=== PATIENT | male | born 2000 | race African-American/Black ===

== ENCOUNTER 2023-05-25 22:09 | Emergency (ER) | payer OTHER ==
[2023-05-25] MEDS ORDERED: Lidocaine 2% 5 ML SDV INFILT ONE (22:10)
[2023-05-25] MEDS ORDERED: Bacitracin Oint 1 GM U/D Packet TOP ONE (23:47)
== END 2023-05-26 00:16 | disposition home or self-care (01) ==
LOC: FB.ED 22:09
DX: S01.81XA Laceration without foreign body of other part of head, initial encounter (principal); W26.8XXA Contact with other sharp object(s), not elsewhere classified, initial encounter; Y99.0 Civilian activity done for income or pay
CPT/HCPCS: 12013; 99283

== ENCOUNTER 2024-01-08 13:41 | Emergency (ER) | payer SELFPAY ==
[2024-01-08] MEDS ORDERED: Sodium Chloride 0.9% 10 ML Syringe FLUSH PRN (14:26)
[2024-01-08] MEDS: traMADol 50 MG Tab PO ONE (14:36)
[2024-01-08] MEDS: Ketorolac 30 MG/ML SDV IVPUSH ONE (14:37)
[2024-01-08] MEDS: cefTRIAXone 2 GM Vial IVPUSH ONE (14:42)
[2024-01-08 14:43] LABS: BASOPHILS ABSOLUTE AUTO 0.1 x10-3/uL (0.0-0.3); BASOPHILS PERCENT AUTO 0.5 % (0.3-3.8); EOSINOPHILS ABSOLUTE AUTO 0.1 x10-3/uL (0.0-0.6); EOSINOPHILS PERCENT AUTO 0.5 % (0.1-6.8); HEMATOCRIT 44.9 % (38.3-50.1); HEMOGLOBIN 15.1 g/dL (12.9-17.7); LYMPHOCYTES ABSOLUTE AUTO 1.7 x10-3/uL (0.5-4.5); LYMPHOCYTES PERCENT AUTO 14.8 % (15.8-45.3); MEAN CORPUSCULAR HEMOGLOBIN 30.9 pg (27.0-33.3); MEAN CORPUSCULAR HGB CONC 33.7 g/dL (28.7-35.3); MEAN CORPUSCULAR VOLUME 91.9 fL (80.8-98.7); MEAN PLATELET VOLUME 7.7 fL (6.7-11.0); MONOCYTES ABSOLUTE AUTO 1.3 x10-3/uL (0.0-1.2); MONOCYTES PERCENT AUTO 11.7 % (5.5-15.2); NEUTROPHILS ABSOLUTE AUTO 8.1 x10-3/uL (1.7-6.9); NEUTROPHILS PERCENT AUTO 72.5 % (40.3-71.8); PLATELET COUNT,PLT 233 x10(3)uL (117-477); RED BLOOD CELL COUNT 4.89 x10(6)uL (3.90-5.90); RED CELL DISTRIBUTION WIDTH 12.5 % (12.4-15.0); WHITE BLOOD CELL COUNT,WBC 11.2 x10-3/uL (3.2-10.1)
[2024-01-08 14:45] LABS: BLOOD UREA NITROGEN,BUN 8 mg/dL (7-18); BUN/CREATININE RATIO 8.9 (9-20); CALCIUM 9.1 mg/dL (8.6-10.2); CARBON DIOXIDE,CO2 28 mmol/L (21-32); CHLORIDE,CL 100 mmol/L (100-110); CREATININE 0.9 mg/dL (0.70-1.30); EST CRCL DRUG DOSING (CG) 143.03 mL/min; ESTIMATED GFR 122 mL/min (>60); GLUCOSE RANDOM 93 mg/dL (80-116); POTASSIUM,K 3.5 mmol/L (3.5-5.3); SODIUM,NA 136 mmol/L (135-145)
[2024-01-08] MEDS: Clindamycin Phosphate 600 MG in Dextrose 5% in Water 50 ML IV ONE (15:10)
[2024-01-08] MEDS: Clindamycin in 0.9 % Sod Chlor 600 MG in Premix Bag 1 BAG IV ONE (15:18)
[2024-01-08] MEDS: Acetaminophen/HYDROcodone 325-5 MG Tab PO ONE (15:33)
[2024-01-08] MEDS: Lidocaine 2% Viscous Solution 15 ML UD PO ONE (15:33)
== END 2024-01-08 16:08 | disposition home or self-care (01) ==
LOC: FB.ED 13:41
DX: K04.7 Periapical abscess without sinus (principal); Z79.899 Other long term (current) drug therapy
CPT/HCPCS: 36415; 80048; 85025; 96365; 96375; 99283-25; A9270-GY; J0696; J1885; J3490